=== PATIENT | female | born 1960 ===

== ENCOUNTER 2021-06-18 13:38 | Inpatient (IN) | payer OTHER ==
[~2021-06-18] VITALS: Ht 172.7 cm; Wt 91.0 kg
--- NOTE | 2021-06-18 13:49 | NUR ---
bib ems for aloc since noon today. nausea and vomiting since yesterday. ems 12 lead shows depression in all leads with exception of elevation in lead 1. no stemi called at this time per erp. pt placed on cardiac, nibp, and o2 monitoring.
[2021-06-18] MEDS ORDERED: SODIUM CHLORIDE FLUSH 10ML SYR IVF ONE (14:00)
[2021-06-18] MEDS ORDERED: SODIUM CHLORIDE 0.9% 1,000ML IVBOLUS ONE (14:00)
[2021-06-18 14:04] LABS: MEAN CORPUSCULAR HEMOGLOBIN 29.3 pg (27.0-34.8); MEAN CORPUSCULAR HGB CONC 33.8 g/dL (32.4-35.8); MEAN PLATELET VOLUME 10.3 fL (7.4-10.4); PLATELET COUNT 387 x10^3/uL (130-400); RED BLOOD COUNT 4.85 x10^6/uL (3.82-5.3); RED CELL DISTRIBUTION WIDTH 13.3 % (9.6-15.2)
--- NOTE | 2021-06-18 14:09 | NUR ---
REPORT FROM STUART, ASSUME CARE OF PT AT THIS TIME.
[2021-06-18 14:15] LABS: ALANINE AMINOTRANSFERASE 44 U/L (12-78); ALBUMIN 3.9 g/dL (3.4-5.0); ANION GAP 15 mmol/L (5-15); CALCIUM 9.6 mg/dL (8.5-10.1); CHLORIDE 102 mmol/L (98-107); CREATININE 3.81 mg/dL (0.55-1.02)
[2021-06-18 14:19] LABS: ALKALINE PHOSPHATASE 31 U/L (45-117); BILIRUBIN,TOTAL 0.8 mg/dL (0.2-1.0); TOTAL PROTEIN 8.5 g/dL (6.4-8.2)
[2021-06-18 14:25] LABS: TROPONIN I 0.205 ng/mL (0.000-0.045)
[2021-06-18] MEDS ORDERED: LACTATED RINGERS 1,000 ML IVBOLUS ONE (14:30)
[2021-06-18] MEDS ORDERED: ONDANSETRON 2MG/ML, 2ML ONE (14:41)
[2021-06-18 14:54] LABS: BAND#(MANUAL) 0.44 x10^3/uL; BANDS%(MANUAL) 2 % (0-7); LYMPH#(MANUAL) 1.54 x10^3/uL (1-3.4); LYMPHS% (MANUAL) 7 % (22-44); MONOS#(MANUAL) 0.22 x10^3/uL (0.3-2.7); MONOS% (MANUAL) 1 % (2-9); SEGS% (MANUAL) 90 % (42-75)
[2021-06-18 14:55] LABS: <PLATELET ESTIMATE> ADEQUATE; <RBC MORPHOLOGY> NORMAL; LARGE PLATELETS 1+
--- NOTE | 2021-06-18 15:28 | NUR ---
PINK SEPSIS SHEET STARTED AT 1450 WITH PERIPHERAL BC X 2 ORDERED. LACTIC ALREADY RESULTED FROM EARLIER. NS BOLUS COMPLETED, LR INFUSING. PT ACTIVELY VOMITING, ZOFRAN GIVEN IV. ST CATH COMPLETED, SPECIMEN WALKED TO LAB. CALL LIGHT WITHIN REACH. AT BS. Addendum: 06/18/21 at 1556 by KEENA PULSE OX DECREASE TO 87-89% ON RA. OXYGEN PLACED AT 2LITERS VIA NC.
[2021-06-18] MEDS ORDERED: ONDANSETRON 2MG/ML, 2ML IVPush ONE (15:30)
[2021-06-18 15:46] LABS: MICROSCOPIC INDICATED
[2021-06-18 15:54] LABS: AMPHETAMINE SCREEN, URINE Negative (Negative); BARBITURATE SCREEN, URINE Negative (Negative); BENZODIAZEPINE SCREEN, URINE Negative (Negative); CANNABINOID SCREEN, URINE Negative (Negative); COCAINE SCREEN, URINE Negative (Negative); METHADONE SCREEN, URINE Negative (Negative); OPIATE SCREEN, URINE Negative (Negative)
[2021-06-18] MEDS ORDERED: PROCHLORPERAZINE 5 MG/ML, 2ML ONE (16:08)
--- NOTE | 2021-06-18 16:10 | NUR ---
PT CONTINUES TO VOMIT. PULSE OX READING CONSISTENTLY 92% ON 2LITERS. CONCERN FOR POTENTIAL ASPIRATIONS REPORTED TO ERP. ADDITIONAL ORDERS OBTAINED. CALL LIGHT WITHIN REACH.
[2021-06-18] MEDS ORDERED: PROCHLORPERAZINE 5 MG/ML, 2ML IVPush ONE (16:30)
[2021-06-18] MEDS ORDERED: CEFTRIAXONE 2 GM in DEXTROSE 5% 50 ML IVPB ONE (16:30)
--- NOTE | 2021-06-18 16:55 | NUR ---
PT IN CT.
[2021-06-18 17:05] LABS: FREE T4 (FREE THYROXINE) 1.49 ng/dL (0.76-1.46)
--- NOTE | 2021-06-18 17:21 | NUR ---
ALL RESULTS BACK, PT FOR RECHECK.
[2021-06-18] MEDS ORDERED: LEVO150T5 PO (17:29)
[2021-06-18] MEDS ORDERED: VIT D3 PO (17:29)
[2021-06-18] MEDS ORDERED: VALS40TA2 PO (17:29)
[2021-06-18] MEDS ORDERED: CELE50CA PO (17:29)
[2021-06-18] MEDS ORDERED: NIFE10CA49 PO (17:29)
[2021-06-18] MEDS ORDERED: SERT-331 PO (17:29)
[2021-06-18] MEDS ORDERED: LORazepam 2 MG/ML, 1ML ONE (18:28)
[2021-06-18] MEDS: LACTATED RINGERS 1,000 ML IV SCH ×2 (18:30→23:20)
--- NOTE | 2021-06-18 18:30 | NUR ---
LATE NOTE: ALERTED THIS RN TO EMERGENCY WITH PT. PT OBSERVED WITH SEIZURE TYPE ACTIVITY, POSSIBLE SYNCOPE WITH VTACH NOTED ON MONITOR RATES 170S. PT HYPOXIC WITH O2 SATS LOW 80S, MORGAN COLORATION TO LIPS AND NOSE. OXYGEN INCREASED, AIRWAY PROTECTED, ERP CALLED TO ROOM. PADS IN PLACE, CRASH CART MOVED TO ROOM. PT WOKE AND WAS ORIENTED X PERSON, ABLE TO FOLLOW SOME COMMANDS. EKG COMPLETED AT BS.
[2021-06-18] MEDS ORDERED: ATROPINE SYRINGE 0.1 MG/ML, 10ML ONE (18:36)
[2021-06-18] MEDS ORDERED: ADENOSINE 6 MG/2 ML ONE ×2 (18:36→18:38)
--- NOTE | 2021-06-18 18:43 | NUR ---
ADENOSINE 6MG IVP FOR SVT RATE 180-190S. PT WITH SLIGHT DECREASE IN RATE TO 170S. ADENOSINE 12 MG IVP WITH CONVERSION TO RATE OF 130S. ERP AT BS.
[2021-06-18] MEDS ORDERED: FENTANYL PF 100 MCG/2ML ONE ×2 (18:48→18:52)
--- NOTE | 2021-06-18 18:49 | NUR ---
VERBAL ORDER FOR 100 MCG FENTANYL. HR 175-185. DR MARTINEZ AT BEDSIDE.
--- NOTE | 2021-06-18 18:53 | NUR ---
FENTANYL 50 MCG IVP GIVEN.
--- NOTE | 2021-06-18 18:55 | NUR ---
SYNCH CARDIOVERSION, RATE CONTINUED AT 160S. FENTANYL 50MCG GIVEN, REPEAT ATTEMPT TO SYNCH CARDIOVERT.
[2021-06-18] MEDS ORDERED: METOPROLOL 1 MG/ML, 5ML ONE (19:08)
--- NOTE | 2021-06-18 19:11 | NUR ---
TASK RN MEDICATED PER ORDER. HR FROM 162 DOWN TO 123 BPM
[2021-06-18 19:29] LABS: TROPONIN I 0.488 ng/mL (0.000-0.045)
--- NOTE | 2021-06-18 19:29 | NUR ---
CRITICAL TROPONIN 0.[address] GRANADOS AND LLUVIA RN. BS REPORT GIVEN TO LLUVIA AT 1910.
[2021-06-18] MEDS ORDERED: METOPROLOL 1 MG/ML, 5ML IVPush ONE (19:30)
[2021-06-18] MEDS ORDERED: FENTANYL PF 100 MCG/2ML IVPush ONE ×2 (19:30)
--- NOTE | 2021-06-18 19:40 | NUR ---
PT RESTING COMFORTABLY AT THIS TIME. PT MEDICATED WITH METOPROLOL PER MD, AND PTS HR DROPPED FROM 152 TO 120. PT SAYS SHE FEELS A LOT BETTER. PTS AT BEDSIDE, AND PT ON CR MONITOR. CRASH CART AT BEDSIDE.
--- NOTE | 2021-06-18 19:41 | NUR ---
DR ALONZO TO BEDSIDE TO EVAL AND INTERVIEW THE PT.
[2021-06-18] MEDS ORDERED: ONDANSETRON 2MG/ML, 2ML IVPush PRN (20:30)
[2021-06-18] MEDS ORDERED: POTASSIUM CHLORIDE 20 MEQ in SODIUM CHLORIDE 0.9% 250 ML IV ONE (20:30)
[2021-06-18] MEDS ORDERED: ACETAMINOPHEN 325 MG TABLET PO PRN (20:30)
[2021-06-18] MEDS ORDERED: LABETALOL 5MG/ML, 20ML IVPush PRN (20:30)
--- NOTE | 2021-06-18 20:49 | NUR ---
PT CALM AND COMFORTABLY, NO DISTRESS AT THIS TIME. PT REMAINS ON CR MONITOR, TALKATIVE, AND PTS SKIN PINK WARM AND DRY. WAS PALE EARLIER. PTS AT BEDSIDE. SIDERAILS UP X2 AND CALL LIGHT WITHIN REACH. CARDS TELE BED REQUESTED.
[2021-06-18] MEDS ORDERED: METOPROLOL TARTRATE 25 MG TAB PO ONE (21:00)
--- NOTE | 2021-06-18 22:35 | NUR ---
PT TAKEN TO FLOOR VIA GURNEY BY MACY. PT ON CR MONITOR AND O2 NC. PTS WENT HOME AND IS UPDATED TO VISITING HOURS AND POLICY AND HE AGREES, AND WILL RETURN TOMORROW MORNING AT 0800. REPORT AND CARE TRANSFERRED TO FLOOR RN.
[2021-06-19] MEDS: LACTATED RINGERS 1,000 ML IV SCH ×8 (01:10→23:26)
[2021-06-19 02:30] VITALS: BP 159/97
[2021-06-19 06:04] LABS: BASOPHILS % (AUTO) 0 % (0-1); EOSINOPHILS % (AUTO) 0 % (1-7); LYMPHOCYTES % (AUTO) 5 % (22-44); MEAN CORPUSCULAR HEMOGLOBIN 30.3 pg (27.0-34.8); MEAN CORPUSCULAR HGB CONC 34.6 g/dL (32.4-35.8); MEAN PLATELET VOLUME 10.6 fL (7.4-10.4); MONOCYTES % (AUTO) 4 % (2-9); NEUTROPHILS % (AUTO) 91 % (42-75); PLATELET COUNT 267 x10^3/uL (130-400); RED BLOOD COUNT 4.08 x10^6/uL (3.82-5.3)
[2021-06-19 06:19] LABS: CHLORIDE 108 mmol/L (98-107)
[2021-06-19 06:24] LABS: ANION GAP 11 mmol/L (5-15); CALCIUM 8.5 mg/dL (8.5-10.1)
[2021-06-19] MEDS ORDERED: MAGNESIUM SULFATE PMX 2GM/50ML 50 ML IV ONE ×2 (06:30→09:30)
[2021-06-19 07:11] VITALS: BP 123/77
[2021-06-19] MEDS ORDERED: POTASSIUM CHLORIDE 20 MEQ TAB.ER.PRT PO ONE ×2 (09:00→17:00)
[2021-06-19] MEDS: METOPROLOL TARTRATE 25 MG TAB PO SCH ×2 (09:21→16:27)
[2021-06-19] MEDS: ASPIRIN 81 MG TABLET EC PO SCH (09:21)
[2021-06-19 09:28] LABS: CHOLESTEROL, TOTAL 139 mg/dL (140-239); TRIGLYCERIDES 265 mg/dL (50-200); VLDL CHOLESTEROL 53 mg/dL (0-25)
[2021-06-19 09:31] LABS: CHOL/HDL RATIO 4.2; HDL CHOL % 24 % (28-40); HDL CHOLESTEROL (DIRECT) 33 mg/dL (40-60); LDL CHOLESTEROL,CALCULATED 53 mg/dL (54-169); LDL/HDL RATIO 1.6 (0.5-3.0)
[2021-06-19 11:47] LABS: POTASSIUM,URINE RANDOM 86 mmol/L; SODIUM,URINE RANDOM 9 mmol/L
[2021-06-19 11:49] LABS: CHLORIDE,URINE RANDOM < 10 mmol/L
[2021-06-19 13:14] VITALS: BP 124/74
[2021-06-19] MEDS ORDERED: POTASSIUM CHLORIDE 10% 40 MEQ/30 ML UDC PO ONE (16:00)
[2021-06-19] MEDS ORDERED: POTASSIUM CHLORIDE 20 MEQ TAB.ER.PRT ONE (16:25)
[2021-06-19 17:18] LABS: ANION GAP 10 mmol/L (5-15); CALCIUM 8.9 mg/dL (8.5-10.1); CHLORIDE 109 mmol/L (98-107); CREATININE 2.89 mg/dL (0.55-1.02)
[2021-06-19 18:32] VITALS: BP 128/83
[2021-06-19 20:35] VITALS: BP 127/77
[2021-06-20 01:00] VITALS: BP 143/90
[2021-06-20] MEDS: LACTATED RINGERS 1,000 ML IV SCH ×6 (03:54→22:19)
[2021-06-20 05:41] LABS: ANION GAP 7 mmol/L (5-15); CALCIUM 8.4 mg/dL (8.5-10.1); CHLORIDE 110 mmol/L (98-107)
[2021-06-20 05:44] LABS: CREATININE 1.74 mg/dL (0.55-1.02)
[2021-06-20 05:51] LABS: BASOPHILS % (AUTO) 1 % (0-1); EOSINOPHILS % (AUTO) 1 % (1-7); LYMPHOCYTES % (AUTO) 19 % (22-44); MEAN CORPUSCULAR HEMOGLOBIN 30.8 pg (27.0-34.8); MEAN CORPUSCULAR HGB CONC 34.8 g/dL (32.4-35.8); MEAN PLATELET VOLUME 10.7 fL (7.4-10.4); MONOCYTES % (AUTO) 4 % (2-9); NEUTROPHILS % (AUTO) 76 % (42-75); PLATELET COUNT 250 x10^3/uL (130-400); RED BLOOD COUNT 3.89 x10^6/uL (3.82-5.3); RED CELL DISTRIBUTION WIDTH 13.5 % (9.6-15.2)
[2021-06-20] MEDS: ASPIRIN 81 MG TABLET EC PO SCH (05:56)
[2021-06-20 05:57] VITALS: BP 136/83
[2021-06-20] MEDS: METOPROLOL TARTRATE 25 MG TAB PO SCH ×2 (05:57→17:39)
[2021-06-20] MEDS ORDERED: MAGNESIUM SULFATE PMX 2GM/50ML 50 ML IVPB ONE (06:30)
[2021-06-20] MEDS ORDERED: MAGNESIUM SULFATE/D5W 100 ML IVPB ONE ×2 (06:30)
[2021-06-20] MEDS ORDERED: POTASSIUM CHLORIDE 20 MEQ TAB.ER.PRT PO ONE (06:30)
[2021-06-20 06:33] VITALS: BP 119/77
[2021-06-20] MEDS: SERTRALINE 50MG TABLET PO SCH (11:29)
[2021-06-20] MEDS: LEVOTHYROXINE 150 MCG TABLET PO SCH (11:30)
[2021-06-20 12:21] VITALS: BP 122/75
[2021-06-20 17:35] VITALS: BP 149/88
[2021-06-20 20:15] VITALS: BP 159/88
[2021-06-20] MEDS ORDERED: ATORVASTATIN 20 MG TABLET PO SCH (21:00)
[2021-06-21 03:00] VITALS: BP 158/83
[2021-06-21] MEDS: METOPROLOL TARTRATE 25 MG TAB PO SCH (05:13)
[2021-06-21] MEDS: ASPIRIN 81 MG TABLET EC PO SCH (05:13)
[2021-06-21 05:30] LABS: BASOPHILS % (AUTO) 1 % (0-1); EOSINOPHILS % (AUTO) 3 % (1-7); LYMPHOCYTES % (AUTO) 16 % (22-44); MEAN CORPUSCULAR HGB CONC 35.1 g/dL (32.4-35.8); MEAN PLATELET VOLUME 10.3 fL (7.4-10.4); MONOCYTES % (AUTO) 7 % (2-9); NEUTROPHILS % (AUTO) 73 % (42-75); PLATELET COUNT 221 x10^3/uL (130-400); RED BLOOD COUNT 3.58 x10^6/uL (3.82-5.3); RED CELL DISTRIBUTION WIDTH 12.9 % (9.6-15.2)
[2021-06-21 05:43] LABS: CHLORIDE 110 mmol/L (98-107)
[2021-06-21 05:52] LABS: ALANINE AMINOTRANSFERASE 82 U/L (12-78); ALBUMIN 2.6 g/dL (3.4-5.0); ALKALINE PHOSPHATASE 27 U/L (45-117); ANION GAP 6 mmol/L (5-15); BILIRUBIN,TOTAL 0.4 mg/dL (0.2-1.0); CALCIUM 7.6 mg/dL (8.5-10.1); CREATININE 0.96 mg/dL (0.55-1.02); TOTAL PROTEIN 5.8 g/dL (6.4-8.2)
[2021-06-21] MEDS: LACTATED RINGERS 1,000 ML IV SCH (06:00)
[2021-06-21 08:00] VITALS: BP 150/91
[2021-06-21] MEDS ORDERED: MAGNESIUM SULFATE PMX 2GM/50ML 50 ML IV ONE (08:00)
[2021-06-21] MEDS: LEVOTHYROXINE 150 MCG TABLET PO SCH (08:42)
[2021-06-21] MEDS: SERTRALINE 50MG TABLET PO SCH (08:42)
[2021-06-21] MEDS ORDERED: REGADENOSON 0.4 MG/5 ML SYRINGE ONE (08:46)
[2021-06-21 13:50] VITALS: BP 153/94
[2021-06-21] MEDS ORDERED: CARVEDILOL 12.5 MG TABLET PO SCH (18:00)
[2021-06-21] MEDS ORDERED: ASPI81TA45 PO (18:23)
[2021-06-21] MEDS ORDERED: CARV12.52 PO (18:23)
[2021-06-21] MEDS ORDERED: ATOR20TA37 PO (18:23)
== END 2021-06-21 19:54 | disposition home or self-care (01) | DRG 871 ==
LOC: ED 19:35 → EDIP 20:14 → 5SO 22:50
PROVIDERS: ADMIT Family Medicine; ATTEND Internal Medicine
PROC: 5A2204Z Restoration of Cardiac Rhythm, Single (ICD-10-PCS; 2021-06-18)
PROC: 0T9B70Z Drainage of Bladder with Drainage Device, Via Natural or Artificial Opening (ICD-10-PCS; 2021-06-18)
PROC: 4A10X4Z Monitoring of Central Nervous Electrical Activity, External Approach (ICD-10-PCS; principal; 2021-06-20)
DX: A41.9 Sepsis, unspecified organism (principal); G93.41 Metabolic encephalopathy; I21.A1 Myocardial infarction type 2; I47.1 Supraventricular tachycardia; N17.9 Acute kidney failure, unspecified; I10 Essential (primary) hypertension; M19.90 Unspecified osteoarthritis, unspecified site; F32.9 Major depressive disorder, single episode, unspecified; E87.6 Hypokalemia; E89.0 Postprocedural hypothyroidism; E83.42 Hypomagnesemia; E78.1 Pure hyperglyceridemia; E86.0 Dehydration; I12.9 Hypertensive chronic kidney disease with stage 1 through stage 4 chronic kidney disease, or unspecified chronic kidney disease; N18.9 Chronic kidney disease, unspecified; Z87.891 Personal history of nicotine dependence; Z79.899 Other long term (current) drug therapy; Z90.710 Acquired absence of both cervix and uterus
CPT/HCPCS: 36415; 70450; 70551; 71045; 71250; 74176; 78452; 80048; 80053; 80061; 80307; 81001; 82140; 82436; 82570; 82962; 83605; 83690; 83735; 84100; 84132; 84133; 84300; 84439; 84443; 84484; 85025; 87040; 87086; 93005; 93017; 93306; 95816; 96365; 96375; 99291; G0378; J0696; J2405; J2785; J3010; A9502; C9898; J0780; J3475; J7030; J7120